=== PATIENT | female | born 1995 | race Caucasian/White ===

== ENCOUNTER 2019-07-10 07:39 | Inpatient (IN) ==
[2019-07-10] MEDS ORDERED: OXYTOCIN 30 UNITS/500 ML BAG IV PRN (08:37)
[2019-07-10 09:05] LABS: Hematocrit (blood only) 36.7 % (37-47); Hemoglobin 12.8 g/dL (12.0-16.0); Mean Corpuscular Hemoglobin 33.4 pg (25-34); Mean Corpuscular Volume 95.8 fL (80-100); Mean Platelet Volume 10.8 fL (7.4-10.4); Platelet Count 202 K/uL (130-400); RDW Coefficient of Variation 13.6 % (11.5-14.5); Red Blood Count 3.83 M/uL (4.2-5.4); White Blood Count 9.76 K/uL (4.8-10.8)
[2019-07-10] MEDS ORDERED: DINOPROSTONE 10 MG INSERT PV ONE (09:15)
--- NOTE | 2019-07-10 09:15 | Obstetrical Progress Note ---
Date of Service July 10, 2019 Subjective Admit Note 24 F P0000 at 41.1 weeks admitted for post-dates induction. GBS is negative. FHT Cat 1. Cervix /50/-3/vertex/posterior/intact. EFW 7.5 lbs. Will start Cervidil 10 mg for cervical ripening. Results & Data Vital Signs (Past 12 Hours) Vital Signs Temp Pulse Resp BP 07/10/19 07:58 36.7 C 20 07/10/19 07:45 88 118/68
[2019-07-10 09:39] LABS: Mean Corpuscular Hgb Conc 34.9 g/dL (32-36)
--- NOTE | 2019-07-10 09:44 | Obstetrical Progress Note ---
Date of Service July 10, 2019 Physical Exam Physical Exam: Cervidil 10 mg placed vaginally. FHT Cat 1. Results & Data Vital Signs (Past 12 Hours) Vital Signs Temp Pulse Resp BP 07/10/19 09:41 78 115/69 07/10/19 07:58 36.7 C 20 07/10/19 07:46 36.7 C 20 07/10/19 07:45 88 118/68
[2019-07-10] MEDS: LACTATED RINGER'S 1,000 ML IV PRN (12:59)
[2019-07-10 15:37] LABS: Amphetamines+Metham, Urine Neg (Neg); Barbiturates, Urine Neg (Neg); Benzodiazepine, Urine Neg (Neg); Cocaine, Urine Neg (Neg); MDMA (Ecstacy), Urine Neg (Neg); Methadone, Urine Neg (Neg); Opiate, Urine Neg (Neg); Phencyclidine, Urine Neg (Neg)
--- NOTE | 2019-07-10 21:51 | Obstetrical Progress Note ---
Date of Service July 10, 2019 Subjective Cervidil pulled out from vagina Cervix 50/-3 Cervix anterior. Will shower and eat dinner Cytotec 50 mg orally every 4 hours merry night titrated to contractions Results & Data Vital Signs (Past 12 Hours) Vital Signs Temp Pulse Resp BP 07/10/19 19:12 36.7 C 18 07/10/19 19:09 71 109/68 07/10/19 16:43 69 119/64 07/10/19 15:59 36.7 C 07/10/19 13:03 36.5 C 20 07/10/19 12:54 72 118/58 L
[2019-07-10] MEDS: buprenorphine HCL 8 MG SUBL SL SCH (22:23)
[2019-07-11] MEDS: miSOPROStoL 50 MCG TAB PO SCH ×4 (00:21→14:11)
[2019-07-11] MEDS: LACTATED RINGER'S 1,000 ML IV PRN ×4 (04:00→18:33)
[2019-07-11] MEDS ORDERED: buprenorphine HCL 8 MG SUBL SL SCH (09:00)
[2019-07-11] MEDS ORDERED: buprenorphine HCL 2 MG SUBL SL SCH (09:00)
[2019-07-11] MEDS: buprenorphine HCL 8 MG SUBL SL SCH ×2 (11:22→20:52)
[2019-07-11] MEDS ORDERED: OXYTOCIN 30 UNITS/500 ML BAG IV PRN (12:23)
--- NOTE | 2019-07-11 12:26 | Obstetrical Progress Note ---
Date of Service July 11, 2019 Subjective Pt doing well Induction r post dates S/P Subutex\ Received Cytotec and Cervidil CTx ; 4-5mins VE;p ft/50/-2 will start Pitocin Results & Data Vital Signs (Past 12 Hours) Vital Signs Temp Pulse Resp BP 07/11/19 11:16 98 H 123/79 07/11/19 07:31 36.6 C 73 20 107/79 07/11/19 03:33 36.7 C 69 16 104/51 L
[2019-07-11] MEDS ORDERED: ePHEDrine sulfate 50 MG/ML AMP ONE (18:57)
[2019-07-11] MEDS ORDERED: fentaNYL citrate 100 MCG/2 ML VIAL ONE (18:57)
[2019-07-11] MEDS ORDERED: BUPIVACAINE 0.25% 30 ML VIAL ONE (18:57)
[2019-07-11] MEDS ORDERED: fentaNYL 2MCG/ML ROPIV 1.25MG/ML 100 ML BAG EPI ONE (18:58)
[2019-07-11] MEDS ORDERED: NALBUPHINE HCL INJ 10 MG/ML AMP IV PRN (19:09)
[2019-07-11] MEDS ORDERED: ePHEDrine sulfate 50 MG/ML AMP IV PRN (19:09)
[2019-07-11] MEDS ORDERED: DiphenhydrAMINE HCL 50 MG/ML VIAL IV PRN (19:09)
[2019-07-11] MEDS ORDERED: ONDANSETRON INJ 2 MG/ML 2 ML VIAL IV PRN (19:09)
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
--- NOTE | 2019-07-11 21:28 | Obstetrical Progress Note ---
Date of Service July 11, 2019 Subjective Pt dong well Epidural analgesia in place SROM -Clear Pit; 18MU VE by Nurse: 3cm Results & Data Vital Signs (Past 12 Hours) Vital Signs Temp Pulse Resp BP Pulse Ox 07/11/19 21:25 73 97 07/11/19 21:20 66 97 07/11/19 21:19 66 102/55 L 07/11/19 21:15 75 98 07/11/19 21:10 90 98 07/11/19 21:09 92 H 92 07/11/19 21:05 62 98 07/11/19 21:04 60 125/70 07/11/19 21:00 81 97 07/11/19 20:55 75 97 07/11/19 20:50 88 97 07/11/19 20:49 80 108/58 L 07/11/19 20:45 72 95 07/11/19 20:40 74 95 07/11/19 20:35 71 95 07/11/19 20:34 71 103/56 L 07/11/19 20:30 76 95 07/11/19 20:25 77 97 07/11/19 20:24 70 94 07/11/19 20:20 81 95 07/11/19 20:19 85 115/59 L 07/11/19 20:18 83 94 07/11/19 20:15 64 96 07/11/19 20:10 68 96 07/11/19 20:05 68 98 07/11/19 20:03 66 104/57 L 07/11/19 20:01 75 100/62 07/11/19 20:00 72 97 07/11/19 19:59 81 88/52 L 07/11/19 19:57 67 90/53 L 07/11/19 19:55 36.6 C 67 16 88/53 L 96 07/11/19 19:53 67 89/51 L 07/11/19 19:51 64 88/53 L 07/11/19 19:50 67 95 07/11/19 19:49 64 94/55 L 07/11/19 19:47 70 94/51 L 07/11/19 19:45 71 96/50 L 96 07/11/19 19:43 68 94/54 L 07/11/19 19:41 69 92/53 L 07/11/19 19:40 71 96 07/11/19 19:38 68 92/50 L 07/11/19 19:37 76 94/51 L 07/11/19 19:35 76 97 07/11/19 19:34 69 95/50 L 07/11/19 19:32 80 114/73 07/11/19 19:31 81 117/67 07/11/19 19:30 80 98 07/11/19 19:27 74 118/68 07/11/19 19:25 77 99 07/11/19 19:24 71 117/67 07/11/19 19:23 73 90 07/11/19 19:20 78 97 07/11/19 19:15 75 99 07/11/19 19:10 78 112/63 98 07/11/19 19:05 70 97 07/11/19 19:04 76 111/62 07/11/19 19:00 71 97 07/11/19 18:55 77 97 07/11/19 18:43 83 112/68 07/11/19 18:04 75 111/68 07/11/19 17:11 83 111/59 L 07/11/19 15:49 86 114/67 07/11/19 14:55 70 110/65 07/11/19 14:29 68 108/66 07/11/19 13:25 79 99/55 L 07/11/19 11:16 98 H 123/79
[2019-07-11] MEDS: fentaNYL 2MCG/ML ROPIV 1.25MG/ML 100 ML BAG EPI PRN (23:05)
[2019-07-12] MEDS: LACTATED RINGER'S 1,000 ML IV PRN ×3 (00:39→12:10)
[2019-07-12] MEDS ORDERED: ACETAMINOPHEN 500 MG TAB PO ONE (01:37)
[2019-07-12] MEDS ORDERED: ACETAMINOPHEN 500 MG TAB ONE (01:39)
--- NOTE | 2019-07-12 03:45 | Obstetrical Progress Note ---
Date of Service July 12, 2019 Subjective Pt doing well FHR; CAT1 CTx 2-3mins VE; 4/50/-2 Pit; 12MU Results & Data Vital Signs (Past 12 Hours) Vital Signs Temp Pulse Resp BP Pulse Ox 07/12/19 03:40 71 103/56 L 97 07/12/19 03:35 77 97 07/12/19 03:30 78 98 07/12/19 03:26 71 100/59 L 07/12/19 03:25 70 95 07/12/19 03:23 72 94 07/12/19 03:20 71 95 07/12/19 03:18 74 94 07/12/19 03:15 75 95 07/12/19 03:12 75 94 07/12/19 03:10 70 105/57 L 95 07/12/19 03:05 90 94 07/12/19 03:00 83 94 07/12/19 02:58 85 94 07/12/19 02:55 74 99/55 L 95 07/12/19 02:50 83 96 07/12/19 02:45 72 95 07/12/19 02:42 69 94 07/12/19 02:40 77 98/56 L 96 07/12/19 02:36 75 94 07/12/19 02:35 69 95 07/12/19 02:30 68 95 07/12/19 02:25 68 101/57 L 95 07/12/19 02:20 64 95 07/12/19 02:15 85 96 07/12/19 02:10 36.4 C L 68 16 108/61 96 07/12/19 02:05 66 95 07/12/19 02:00 79 97 07/12/19 01:56 67 100/58 L 94 07/12/19 01:55 69 96 07/12/19 01:50 67 95 07/12/19 01:45 70 96 07/12/19 01:42 63 108/62 07/12/19 01:40 69 97 07/12/19 01:35 73 96 07/12/19 01:30 81 98 07/12/19 01:25 76 105/58 L 96 07/12/19 01:24 36.4 C L 16 07/12/19 01:20 73 96 07/12/19 01:15 77 97 07/12/19 01:11 72 101/50 L 94 07/12/19 01:10 70 96 07/12/19 01:05 101 H 97 07/12/19 01:02 85 94 07/12/19 01:00 77 94 07/12/19 00:56 76 92/55 L 94 07/12/19 00:55 77 94 07/12/19 00:50 75 94 07/12/19 00:46 83 94 07/12/19 00:45 73 95 07/12/19 00:40 76 94 07/12/19 00:35 70 95 07/12/19 00:34 72 90/50 L 94 07/12/19 00:30 73 96 07/12/19 00:25 68 95 07/12/19 00:20 68 95 07/12/19 00:18 64 84/47 L 07/12/19 00:15 64 96 07/12/19 00:13 72 94 07/12/19 00:10 36.6 C 68 16 95 07/12/19 00:05 76 97 07/12/19 00:03 78 99/62 L 94 07/12/19 00:00 72 96 07/11/19 23:55 87 96 07/11/19 23:50 74 96 07/11/19 23:48 83 105/61 07/11/19 23:47 18 07/11/19 23:45 73 96 07/11/19 23:40 76 97 07/11/19 23:35 86 105/60 97 07/11/19 23:30 79 97 07/11/19 23:25 72 96 07/11/19 23:20 74 97 07/11/19 23:19 71 106/60 07/11/19 23:15 75 97 07/11/19 23:10 36.6 C 70 18 98 07/11/19 23:05 73 107/57 L 98 07/11/19 23:00 84 96 07/11/19 22:55 77 97 07/11/19 22:50 75 109/53 L 97 07/11/19 22:45 75 98 07/11/19 22:40 67 98 07/11/19 22:35 78 97 07/11/19 22:34 85 107/67 07/11/19 22:30 80 97 07/11/19 22:25 80 97 07/11/19 22:20 83 98 07/11/19 22:18 71 97/46 L 07/11/19 22:15 67 96 07/11/19 22:10 65 96 07/11/19 22:05 65 96 07/11/19 22:04 64 99/52 L 07/11/19 22:00 77 96 07/11/19 21:55 78 97 07/11/19 21:50 77 97 07/11/19 21:49 74 114/59 L 07/11/19 21:45 77 96 07/11/19 21:40 81 97 07/11/19 21:35 71 98 07/11/19 21:34 71 108/57 L 07/11/19 21:31 16 07/11/19 21:30 73 97 07/11/19 21:25 73 97 07/11/19 21:20 66 97 07/11/19 21:19 66 102/55 L 07/11/19 21:15 75 98 07/11/19 21:10 90 98 07/11/19 21:09 92 H 92 07/11/19 21:05 62 98 07/11/19 21:04 60 125/70 07/11/19 21:01 16 07/11/19 21:00 81 97 07/11/19 20:55 75 97 07/11/19 20:50 88 97 07/11/19 20:49 80 108/58 L 07/11/19 20:45 72 95 07/11/19 20:40 74 95 07/11/19 20:35 71 95 07/11/19 20:34 71 103/56 L 07/11/19 20:32 18 07/11/19 20:30 76 95 07/11/19 20:25 77 97 07/11/19 20:24 70 94 07/11/19 20:20 81 95 07/11/19 20:19 85 115/59 L 07/11/19 20:18 83 94 07/11/19 20:15 64 96 07/11/19 20:10 68 96 07/11/19 20:05 68 98 07/11/19 20:03 66 104/57 L 07/11/19 20:02 16 07/11/19 20:01 75 100/62 07/11/19 20:00 72 97 07/11/19 19:59 81 88/52 L 07/11/19 19:57 67 90/53 L 07/11/19 19:55 36.6 C 67 16 88/53 L 96 07/11/19 19:53 67 89/51 L 07/11/19 19:51 64 88/53 L 07/11/19 19:50 67 95 07/11/19 19:49 64 94/55 L 07/11/19 19:47 70 94/51 L 07/11/19 19:45 71 96/50 L 96 07/11/19 19:43 68 94/54 L 07/11/19 19:41 69 92/53 L 07/11/19 19:40 71 96 07/11/19 19:38 68 92/50 L 07/11/19 19:37 76 94/51 L 07/11/19 19:35 76 97 07/11/19 19:34 69 18 95/50 L 07/11/19 19:32 80 114/73 07/11/19 19:31 81 117/67 07/11/19 19:30 80 98 07/11/19 19:27 74 118/68 07/11/19 19:25 77 99 07/11/19 19:24 71 117/67 07/11/19 19:23 73 90 07/11/19 19:20 78 97 07/11/19 19:15 75 18 99 07/11/19 19:10 78 112/63 98 07/11/19 19:05 70 97 07/11/19 19:04 76 111/62 07/11/19 19:00 71 97 07/11/19 18:55 36.5 C 77 97 07/11/19 18:43 83 112/68 07/11/19 18:04 75 111/68 07/11/19 17:11 83 111/59 L 07/11/19 15:49 86 114/67
[2019-07-12] MEDS: fentaNYL 2MCG/ML ROPIV 1.25MG/ML 100 ML BAG EPI PRN ×2 (05:30→13:11)
[2019-07-12] MEDS ORDERED: Nursing to Pharmacy Communication ONE ×2 (08:17→13:40)
[2019-07-12] MEDS: buprenorphine HCL 8 MG SUBL SL SCH ×2 (09:15→21:12)
[2019-07-12] MEDS ORDERED: OXYTOCIN 30 UNITS/500 ML BAG IV PRN (17:00)
[2019-07-12] MEDS ORDERED: HYDROCORTISONE ACETATE 25 MG SUPP PR PRN (17:00)
[2019-07-12] MEDS ORDERED: BENZOCAINE 20% AER SPR 82.5 GM CAN EXT PRN (17:00)
[2019-07-12] MEDS ORDERED: bisacodyL 10 MG SUPP PR PRN (17:00)
[2019-07-12] MEDS ORDERED: ACETAMINOPHEN 325 MG TAB PO PRN (17:00)
[2019-07-12] MEDS ORDERED: OXYCODONE/ACETAMINOPHEN 5mg/325mg TAB PO PRN (17:00)
[2019-07-12] MEDS ORDERED: DIPHTHERIA/TETANUS/PERTUSSIS 0.5 ML SYR/VIAL IM ONE (17:00)
[2019-07-12] MEDS ORDERED: SUPERCREAM 0.870% 15 GM JAR EXT PRN (17:00)
[2019-07-12] MEDS ORDERED: ACETAMINOPHEN W/CODEINE #3 1 TAB PO PRN (17:00)
--- NOTE | 2019-07-12 17:49 | Anesthesia Procedure Note ---
Date of Service July 12, 2019 Anesthesia Post Epidural Note Vital Signs Vital Signs: Temp Pulse Resp BP Pulse Ox 36.7 C 61 20 131/74 96 07/12/19 15:00 07/12/19 17:41 07/12/19 17:25 07/12/19 17:41 07/12/19 16:59 Pain Intensity Lower Back: Pain Intensity: 0 Notes Mental Status: alert / awake / arousable and participated in evaluation Nausea / Vomiting: adequately controlled Pain: adequately controlled Airway Patency, RR, SpO2: stable & adequate BP & HR: stable & adequate Hydration State: stable & adequate Neuraxial Anesthesia: was administered and sensory block is resolving Anesthetic Complications: no major complications apparent Epidural: Removed without complications and With tip intact
[2019-07-12] MEDS: IBUPROFEN 600 MG TAB PO PRN (18:48)
--- NOTE | 2019-07-12 19:26 | Operative Report ---
DATE OF OPERATION: 07/12/2019 DELIVERY NOTE She is a 3, para 1. Blood type is O positive, group B strep negative, was brought on for induction, being post-term. She was given p.o. Cytotec and Cervidil tape and eventually she was started on IV Pitocin. After she was about 4-5 cm dilated, her membranes were ruptured. She also received epidural for pain control from which she got good pain relief. She delivered a live female infant via direct occiput anterior position over an intact perineum. Infant was suctioned through the mouth and the nose. Body was delivered without difficulty. Cord was clamped, cut by the father. Cord blood was taken. With IV Pitocin running, the placenta was removed intact. Inspection of the perineum revealed a first degree laceration. This was repaired anatomically. The vaginal mucosa was repaired with a running 2-0 Vicryl out to beyond the hymenal ring, deep suture of 2-0 Vicryl was used to approximate the bulbocavernosus muscle, separate deep suture was used to approximate the perineal body and another second suture was used to approximate the perineal body. Following this, a running subcuticular suture was used to approximate the perineal skin edges. Vag exam including rectovaginal examination revealed no sponges in the vagina, hematoma formation or stitches through the rectum. The patient tolerated the procedure well and left delivery room in good condition. Estimated blood loss was 200 mL. Apgars will be deferred to the nurses. I attest to the content of the Intraoperative Record and any orders documented therein. Any exception s are noted below.
[2019-07-12] MEDS: DOCUSATE SODIUM 100 MG CAP PO SCH (21:12)
[2019-07-13] MEDS: IBUPROFEN 600 MG TAB PO PRN ×3 (01:05→16:37)
[2019-07-13 06:35] LABS: Hematocrit (blood only) 34.5 % (37-47); Hemoglobin 11.8 g/dL (12.0-16.0); Mean Corpuscular Hemoglobin 33.3 pg (25-34); Mean Corpuscular Hgb Conc 34.2 g/dL (32-36); Mean Corpuscular Volume 97.5 fL (80-100); Mean Platelet Volume 11.3 fL (7.4-10.4); Platelet Count 164 K/uL (130-400); RDW Coefficient of Variation 13.7 % (11.5-14.5); RDW Standard Deviation 49.3 fL (36.4-46.3); Red Blood Count 3.54 M/uL (4.2-5.4); White Blood Count 13.21 K/uL (4.8-10.8)
[2019-07-13] MEDS: DOCUSATE SODIUM 100 MG CAP PO SCH ×2 (09:28→21:25)
[2019-07-13] MEDS: PRENATAL VITAMIN 1 TAB PO SCH (09:28)
[2019-07-13] MEDS: buprenorphine HCL 8 MG SUBL SL SCH ×2 (09:29→21:26)
[2019-07-13] MEDS: FERROUS SULFATE 325 MG TAB PO SCH (09:29)
--- NOTE | 2019-07-13 10:53 | Obstetrical Progress Note ---
Date of Service July 13, 2019 Subjective Patient is seen and examined. She feels well, no complaints. Ambulating without dizziness Voiding without difficulty Tolerating regular diet with out N&V Bleeding is minimal No fever/ chills/ CP/ SOB/ N&V/ Leg pain Breast feeding without problems Vital Signs Temp Pulse Pulse Resp BP Pulse Ox 07/13/19 09:00 36.6 C 69 109/74 96 07/13/19 04:25 36.3 C L 67 16 113/74 98 07/13/19 00:50 36.7 C 72 17 108/65 98 07/13/19 Range/Units 06:05 WBC 13.21 H (4.8-10.8) K/uL RBC 3.54 L (4.2-5.4) M/uL Hgb 11.8 L (12.0-16.0) g/dL Hct 34.5 L (37-47) % MCV 97.5 (80-100) fL MCH 33.3 (25-34) pg MCHC 34.2 (32-36) g/dL RDW Std Deviation 49.3 H (36.4-46.3) fL RDW Coeff of José Antonio 13.7 (11.5-14.5) % Plt Count 164 (130-400) K/uL MPV 11.3 H (7.4-10.4) fL PE: General: Alert, orientedx3, NAD Abd: soft, NT, fundus firm, below Umbilicus Perineum intact, Lochia rubra minimal Ext; NT, no edema AP: 24 yo s/p , ppd# 1 VSS Afebrile doing well Continue routine care All questions were answered D/C home tomorrow Results & Data Vital Signs (Past 12 Hours) Vital Signs Temp Pulse Pulse Resp BP Pulse Ox 07/13/19 09:00 36.6 C 69 109/74 96 07/13/19 04:25 36.3 C L 67 16 113/74 98 07/13/19 00:50 36.7 C 72 17 108/65 98
[2019-07-13] MEDS ORDERED: bisacodyL 5 MG TABEC PO SCH (20:00)
[2019-07-14 07:39] LABS: Hematocrit (blood only) 35.1 % (37-47)
[2019-07-14] MEDS: DOCUSATE SODIUM 100 MG CAP PO SCH (08:18)
[2019-07-14] MEDS: IBUPROFEN 600 MG TAB PO PRN ×3 (08:18→17:34)
[2019-07-14] MEDS: FERROUS SULFATE 325 MG TAB PO SCH (08:18)
[2019-07-14] MEDS: PRENATAL VITAMIN 1 TAB PO SCH (08:18)
--- NOTE | 2019-07-14 08:31 | Obstetrical Progress Note ---
Date of Service July 14, 2019 Assessment & Plan (1) normal course: PPD #2 hx of substance abuse pt is on Subutex pt d/c home today Results & Data Vital Signs (Past 12 Hours) Vital Signs Temp Pulse Resp BP Pulse Ox 07/14/19 07:50 36.7 C 67 18 108/67 96 07/14/19 01:14 36.6 C 69 18 120/80
[2019-07-14] MEDS: buprenorphine HCL 8 MG SUBL SL SCH (08:40)
== END 2019-07-14 20:30 | disposition home or self-care (01) | DRG 807 ==
LOC: 4S1 07:39 → 4S2 07-12 19:10